=== PATIENT | female | born 1995 | race Caucasian/White ===

== ENCOUNTER 2016-07-21 14:21 | Emergency (ER) | payer OTHER ==
--- NOTE | 2016-07-21 14:21 | EDPHY ---
H & P Constitutional: Initial Vital Signs Temperature (C) 36.6 C 07/21/16 15:00 Heart Rate 54 L 07/21/16 15:00 Respiratory Rate 16 07/21/16 15:00 Blood Pressure 112/89 H 07/21/16 15:00 O2 Sat (%) 99 07/21/16 15:00 O2 Delivery Mode Room Air Allergies/Adverse Reactions: No Known Allergies Allergy (Verified 07/21/16 15:00) Home Medications: Medication Instructions Recorded NK [No Known Home Meds] 07/21/16 Medical Decision Making ED Course/Re-evaluation: CHIEF COMPLAINT: Lower abdominal pain. HISTORY OF PRESENT ILLNESS: The patient is a 20-year-old female who presents via EMS for severe lower abdominal pain that began suddenly 1.5 hours ago. She admits associated lightheadedness. She denies fever, dysuria, vaginal discharge. Pain is non-radiating and worsened with movement. It is causing her difficulty walking. No prior history of abdominal surgeries. No other complaints at this time. REVIEW OF SYSTEMS: A 10 point review of systems was performed and is negative with the exception of the elements mentioned in the history of present illness. PHYSICAL EXAM: HR, BP, O2 Sat, RR. Temp noted General Appearance: Alert, well hydrated, appropriate, and non-toxic appearing. Head: Atraumatic without scalp tenderness or obvious injury Eyes: Pupils equal, round, reactive to light and accommodation, EOMI, no trauma , no injection. Ears: Clear bilaterally, no perforation, normal landmarks Nose: Atraumatic, no rhinorrhea, clear. Throat: There is no erythema or exudates, no lesions, normal tonsils, mucus membranes moist. Neck: Supple, 2+ carotid upstroke, nontender, no lymphadenopathy. Respiratory: No retractions, no distress, no wheezes, and no accessory muscle use. Lungs are clear to auscultation bilaterally. Cardiovascular: Regular rate and rhythm, no murmurs, rubs, or gallops. Bilateral carotid, radial, dorsalis pedis, and posterior tibial pulses intact. Good capillary refill all extremities. Gastrointestinal: Abdomen is soft, non-distended, no masses, no rebound, no guarding, no peritoneal signs. Marked tenderness throughout lower abdomen. Musculoskeletal: Normal active ROM of all extremities, atraumatic. Neurological: Alert, appropriate, and interactive. The patient has normal DTRs and non-focal cranial nerves, motor, sensory, and cerebellar exam. Skin: No rashes, good turgor, no nodules on palpation. Past medical history: Denies. Past surgical history: Denies. Family history: N/A. Social history: Here alone. DIAGNOSTICS/PROCEDURES/CRITICAL CARE TIME: I viewed the patient's imaging studies independently on the PACS system. See "Imaging" section above for radiologist reports. DIFFERENTIAL DIAGNOSIS: The differential diagnosis for the patient's abdominal pain included but was not limited to ovarian cyst, pelvic inflammatory disease, ovarian torsion, urinary tract infection, ectopic , cholecystitis, and appendicitis. MEDICAL DECISION MAKING: I met EMS on arrival and obtained a report from the brush worker. This 20-year-old female presents with sudden onset lower abdominal pain that began 2 hours ago. The pain is non-radiating and is causing her difficulty walking, it is worsened with movement. On exam she appears to be quite tender throughout the lower abdomen. I have moderate concern for appendicitis. An IV was established and we will obtain labs. Abdominal CT ordered. Urine is consistent with UTI. 50-182 WBCs and 50-182 RBs. She is awaiting CT imaging. 1619: CT results conveyed to me negative by Dr. Dimas, radiology. She will be treated for UTI with Keflex and discharged. I discussed these results and the plan with her and answered her questions. She is comfortable with the plan. - Data Points Laboratory Results: Laboratory Results 07/21/16 14:30 07/21/16 14:30 07/21/16 07/21/16 07/21/16 14:30 14:30 14:30 WBC RBC Hgb Hct MCV MCH MCHC RDW Plt Count MPV Neut % (Auto) Lymph % (Auto) [place] % (Auto) Eos % (Auto) Baso % (Auto) Nucleat RBC Rel Count Absolute Neuts (auto) Absolute Lymphs (auto) Absolute Monos (auto) Absolute Eos (auto) Absolute Basos (auto) Absolute Nucleated RBC Immature Gran % Immature Gran # Sodium 141 mEq/L mEq/L (134-144) Potassium 3.7 mEq/L mEq/L (3.5-5.2) Chloride 105 mEq/L mEq/L (97-110) Carbon Dioxide 23 mEq/l mEq/l (22-31) Anion Gap 13 mEq/L mEq/L (8-16) BUN 11 mg/dL mg/dL (7-23) Creatinine 0.6 mg/dL mg/dL (0.6-1.0) Estimated GFR > 60 Glucose 121 mg/dL H mg/dL (70-100) Calcium 9.8 mg/dL mg/dL (8.5-10.4) Total Bilirubin 0.7 mg/dL mg/dL (0.1-1.4) Conjugated Bilirubin 0.4 mg/dL mg/dL (0.0-0.5) Unconjugated Bilirubin 0.3 mg/dL mg/dL (0.0-1.1) AST 20 IU/L IU/L (14-46) ALT 28 IU/L IU/L (9-52) Alkaline Phosphatase 46 IU/L IU/L (38-126) Total Protein 7.8 g/dL g/dL (6.3-8.2) Albumin 4.8 g/dL g/dL (3.5-5.0) Lipase 38.0 IU/L IU/L (23-300) Beta HCG, Qual NEGATIVE Urine Color RED Urine Appearance MODERATELY TURBID Urine pH 6.0 (5.0-7.5) Ur Specific [place] 1.030 (1.002-1.030) Urine Protein 2+ H (NEGATIVE) Urine Ketones TRACE H (NEGATIVE) Urine Blood 3+ H (NEGATIVE) Urine Nitrate NEGATIVE (NEGATIVE) Urine Bilirubin NEGATIVE (NEGATIVE) Urine Urobilinogen NEGATIVE EU EU (0.2-1.0) Ur Leukocyte Esterase NEGATIVE (NEGATIVE) Urine RBC 50-182 /hpf H /hpf (0-3) Urine WBC 50-182 /hpf H /hpf (0-3) Ur Epithelial Cells TRACE /lpf /lpf (NONE-1+) Urine Bacteria 1+ /hpf H /hpf (NONE SEEN) Urine Mucus 1+ /lpf /lpf (NONE-1+) Ur Culture Indicated? INDICATED H (NI) Urine Glucose 1+ H (NEGATIVE) 07/21/16 14:30 WBC 11.79 10^3/uL H 10^3/uL (3.80-9.50) RBC 4.62 10^6/uL 10^6/uL (4.18-5.33) Hgb 14.1 g/dL g/dL (12.6-16.3) Hct 42.2 % % (38.0-47.0) MCV 91.3 fL fL (81.5-99.8) MCH 30.5 pg pg (27.9-34.1) MCHC 33.4 g/dL g/dL (32.4-36.7) RDW 14.2 % % (11.5-15.2) Plt Count 226 10^3/uL 10^3/uL (150-400) MPV 11.1 fL fL (8.7-11.7) Neut % (Auto) 74.3 % H % (39.3-74.2) Lymph % (Auto) 18.0 % % (15.0-45.0) [place] % (Auto) 4.7 % % (4.5-13.0) Eos % (Auto) 2.3 % % (0.6-7.6) Baso % (Auto) 0.3 % % (0.3-1.7) Nucleat RBC Rel Count 0.0 % % (0.0-0.2) Absolute Neuts (auto) 8.76 10^3/uL H 10^3/uL (1.70-6.50) Absolute Lymphs (auto) 2.12 10^3/uL 10^3/uL (1.00-3.00) Absolute Monos (auto) 0.55 10^3/uL 10^3/uL (0.30-0.80) Absolute Eos (auto) 0.27 10^3/uL 10^3/uL (0.03-0.40) Absolute Basos (auto) 0.04 10^3/uL 10^3/uL (0.02-0.10) Absolute Nucleated RBC 0.00 10^3/uL 10^3/uL (0-0.01) Immature Gran % 0.4 % % (0.0-1.1) Immature Gran # 0.05 10^3/uL 10^3/uL (0.00-0.10) Sodium Potassium Chloride Carbon Dioxide Anion Gap BUN Creatinine Estimated GFR Glucose Calcium Total Bilirubin Conjugated Bilirubin Unconjugated Bilirubin AST ALT Alkaline Phosphatase Total Protein Albumin Lipase Beta HCG, Qual Urine Color Urine Appearance Urine pH Ur Specific [place] Urine Protein Urine Ketones Urine Blood Urine Nitrate Urine Bilirubin Urine Urobilinogen Ur Leukocyte Esterase Urine RBC Urine WBC Ur Epithelial Cells Urine Bacteria Urine Mucus Ur Culture Indicated? Urine Glucose Medications Given: Discontinued Medications Sodium Chloride (Ns) 1,000 mls @ 0 mls/hr IV ONCE ONE PRN Reason: Wide Open Stop: 07/21/16 14:26 Last Admin: 07/21/16 15:00 Dose: 1,000 mls Ondansetron HCl (Zofran) 4 mg IVP EDNOW ONE Stop: 07/21/16 14:26 Last Admin: 07/21/16 15:03 Dose: 4 mg Departure - Departure Disposition: Home, Routine, Self-Care Clinical Impression: UTI (urinary tract infection) Qualifiers: Urinary tract infection type: site unspecified Hematuria presence: with hematuria Qualified Code(s): N39.0 - Urinary tract infection, site not specified Condition: Good Instructions: Urinary Tract Infection in Women (ED) Additional Instructions: Take the Keflex as prescribed. Drink plenty of fluids. Follow up with your primary care provider in the next week if symptoms are not improving. If you need a PCP you have been given the telephone number of Dr. Ott. Return for any serious worsening of condition. Referrals: Carlos Ott MD [Medical Doctor] - As per Instructions Report Scribed for: Mitchel Salmon Report Scribed by: Shree Kilgore Date of Report: 07/21/16 Time of Report: 14:30
[2016-07-21] MEDS ORDERED: ONDANSETRON 4 MG/2 ML VIAL IVP ONE (14:25)
[2016-07-21] MEDS ORDERED: NS 1,000 ML IV ONE (14:25)
[2016-07-21 14:52] LABS: COLOR RED; LEUKOCYTE ESTERASE,URINE NEGATIVE (NEGATIVE); NITRITE,URINE NEGATIVE (NEGATIVE)
[2016-07-21 14:54] LABS: % IMMATURE GRANULYOCYTES 0.4 % (0.0-1.1); ABSOLUTE IMMATURE GRANULOCYTES 0.05 10^3/uL (0.00-0.10); ADD DIFF? NO; ADD MORPH? NO; ADD SCAN? NO; ATYPICAL LYMPHOCYTE FLAG 10 (0-99); FRAGMENT RBC FLAG 0 (0-99); HEMATOCRIT 42.2 % (38.0-47.0); HEMOGLOBIN 14.1 g/dL (12.6-16.3); LEFT SHIFT FLG 0 (0-99); LIPEMIA HEMOLYSIS FLAG 80 (0-99); MEAN CELL HEMOGLOBIN 30.5 pg (27.9-34.1); MEAN CELL HEMOGLOBIN CONCENTR. 33.4 g/dL (32.4-36.7); MEAN CELL VOLUME 91.3 fL (81.5-99.8); MEAN PLATELET VOLUME 11.1 fL (8.7-11.7); PLATELET CLUMPS FLAG 10 (0-99); PLATELET COUNT 226 10^3/uL (150-400); RED BLOOD CELL COUNT 4.62 10^6/uL (4.18-5.33); RED CELL DISTRIBUTION WIDTH 14.2 % (11.5-15.2)
[2016-07-21 15:03] VITALS: RESP 16
[2016-07-21 15:09] LABS: BACTERIA 1+ /hpf (NONE SEEN); MUCUS 1+ /lpf (NONE-1+); RBC,URINE 50-182 /hpf (0-3); WBC,URINE 50-182 /hpf (0-3)
[2016-07-21 15:28] LABS: ALANINE AMINOTRANSFERASE 28 IU/L (9-52); ALBUMIN 4.8 g/dL (3.5-5.0); ALKALINE PHOSPHATASE 46 IU/L (38-126); ANION GAP 13 mEq/L (8-16); ASPARTATE AMINOTRANSFERASE 20 IU/L (14-46); BILIRUBIN,TOTAL 0.7 mg/dL (0.1-1.4); BILIRUBIN-CONJUGATED 0.4 mg/dL (0.0-0.5); BILIRUBIN-UNCONJUGATED 0.3 mg/dL (0.0-1.1); CALCIUM 9.8 mg/dL (8.5-10.4); CARBON DIOXIDE 23 mEq/l (22-31); CHLORIDE 105 mEq/L (97-110); CREATININE 0.6 mg/dL (0.6-1.0); GLOMERULAR FILTRATION RATE > 60; GLUCOSE 121 mg/dL (70-100); POTASSIUM 3.7 mEq/L (3.5-5.2); SODIUM 141 mEq/L (134-144); TOTAL PROTEIN 7.8 g/dL (6.3-8.2)
[2016-07-21] MEDS ORDERED: IOPAMIDOL (ISOVUE-300) 100 ML BTL IV ONE (15:42)
[2016-07-21] MEDS ORDERED: CEPHALEXIN 500 MG CAP PO ONE (16:19)
[2016-07-21 16:40] VITALS: BP 122/79; PULSE 82; TEMP 98.4; O2SAT 97
== END 2016-07-21 16:37 | disposition home or self-care (01) ==
LOC: EDUNIT#
DX: N39.0 Urinary tract infection, site not specified (principal); B96.89 Other specified bacterial agents as the cause of diseases classified elsewhere
CPT/HCPCS: 96374; J2405; Q9967

== ENCOUNTER 2017-01-08 20:56 | Emergency (ER) | payer OTHER ==
[2017-01-08 21:51] VITALS: BP 117/69; PULSE 88; RESP 16; TEMP 99.1; O2SAT 97
[2017-01-08] MEDS ORDERED: KETOROLAC 30 MG/1 ML SDV IM ONE (22:06)
[2017-01-08] MEDS ORDERED: METHOCARBAMOL 750 MG TAB PO ONE (22:07)
--- NOTE | 2017-01-08 22:07 | EDPHY ---
H & P Stated Complaint: Thoracic back after belly dancing yesterday. Source: Patient Exam Limitations: No limitations - Personal History LMP (Females 10-55): 1-7 Days Ago Current Tetanus/Diphtheria Vaccine: Yes Current Tetanus Diphtheria and Acellular Pertussis (TDAP): Yes Tetanus Vaccine Date: 2014 - Medical/Surgical History Hx Asthma: Yes Hx Chronic Respiratory Disease: No Hx Diabetes: No Hx Cardiac Disease: No Hx Renal Disease: No Hx Cirrhosis: No Hx Alcoholism: No Hx HIV/AIDS: No Hx Splenectomy or Spleen Trauma: No Other PMH: med hx-asthma. surg-tonsilectomy - Social History Smoking Status: Heavy smoker Time Seen by Provider: 01/08/17 21:23 HPI/ROS: CHIEF COMPLAINT: back pain HISTORY OF PRESENT ILLNESS: 21-year-old female presents emergency department complaining of left-sided mid back pain that started upon awakening this morning. Patient did a belly dancing class yesterday with a lot of new range of motion. She woke up this morning with spasms in her mid back were small left side. Patient reports pain is worse with movement, pain is worse with deep breath. Patient has taken ibuprofen and ice has rubbed thc cream to back without relief. Patient denies fevers or chills, no loss of control of her bowel or bladder, no numbness or tingling to extremities, no neck pain, no headache. REVIEW OF SYSTEMS: A comprehensive 10 point review of systems is otherwise negative aside from elements mentioned in the history of present illness. (Malorie Bermudez) - Physical Exam Exam: GEN: Awake, alert, oriented, no acute distress RESP: nl resp effort, lungs clear to auscultation, normal cardiac rhythm and rate Abdomen: Soft, nontender MSK: Normal range of motion of all 4 extremities, left-sided thoracic paraspinal tenderness to palpation with spasm, no midline tenderness SKIN: No rash, no break in skin (Malorie Bermudez) Constitutional: Initial Vital Signs Temperature (C) 37.3 C 01/08/17 21:12 Heart Rate 88 01/08/17 21:12 Respiratory Rate 16 01/08/17 21:12 Blood Pressure 117/69 01/08/17 21:12 O2 Sat (%) 97 01/08/17 21:12 O2 Delivery Mode Room Air Allergies/Adverse Reactions: No Known Allergies Allergy (Verified 01/08/17 21:16) Home Medications: Medication Instructions Recorded Methocarbamol [Robaxin-750] 750 - 1,500 mg PO QID PRN #20 01/08/17 tablet Medical Decision Making ED Course/Re-evaluation: Patient with left-sided thoracic paraspinal spasm on exam. She is given a shot of IM Toradol and a dose of methocarbamol in the emergency department. Patient is discharged home with a prescription for methocarbamol. I have recommended gentle range of motion, ice or heat whichever feels better, gentle massage, NSAIDs. She is given return precautions for any signs of infection or neurovascular compromise. (Malorie Bermudez) Differential Diagnosis: The differential diagnosis for the patient's back pain included but was not limited to musculo-skeletal pain, epidural abscess, herniated disk, spinal fracture, cauda equina and intra-abdominal causes including urinary system. ( Malorie Bermudez) - Data Points Medications Given: Discontinued Medications Ketorolac Tromethamine (Toradol) 30 mg IM EDNOW ONE Stop: 01/08/17 22:07 Last Admin: 01/08/17 22:25 Dose: 30 mg Methocarbamol (Robaxin) 1,500 mg PO EDNOW ONE Stop: 01/08/17 22:08 Last Admin: 01/08/17 22:25 Dose: 1,500 mg Departure - Departure Disposition: Home, Routine, Self-Care Clinical Impression: Spasm of paraspinal muscle Condition: Good Instructions: Muscle Spasm (ED) Additional Instructions: Take 600mg of ibuprofen every 8 hours with food for 3-5 days. Take 750-1500mg of methocarbomal every 6 hours as needed for muscle spasms. Ice or heat whichever feels better, gentle range of motion, gentle massage. With return to the emergency department for any fevers, loss of control of her bowel or bladder, numbness to your groin, worsening symptoms or concerns. Referrals: NONE *PRIMARY CARE P,. [Primary Care Provider] - As per Instructions Prescriptions: Methocarbamol [Robaxin-750] 750 - 1,500 mg PO QID PRN #20 tablet PRN Reason: Spasms
== END 2017-01-08 22:36 | disposition home or self-care (01) ==
DX: M62.830 Muscle spasm of back (principal); J45.909 Unspecified asthma, uncomplicated; F17.200 Nicotine dependence, unspecified, uncomplicated
CPT/HCPCS: J1885